=== PATIENT | female | born 1955 | race Caucasian/White ===

== ENCOUNTER 2019-09-25 13:40 | Outpatient (CLI) | payer MEDICARE, BC, SELFPAY ==
--- NOTE | ~2019-09-25 | US_ITS ---
EXAMINATION: US carotid duplex BI DATE: 09/25/2019 15:54 INDICATION: Stroke with subjective vision disturbance TECHNIQUE: Grayscale, color Doppler, and pulsed Doppler images of the cervical carotid arteries were obtained. The degree of vessel stenosis is placed in one of the following categories: normal, <50%, 5 0-69%, >=70% but less than near-occlusion, near-occlusion, or total occlusion. Note that percent sten osis relative to normal distal artery lumen diameter is indirectly measured from velocity measurement s as described by Sebastián, et al. Radiology 2003; [id number]:[id number]. COMPARISON: None. FINDINGS: RIGHT: The right common carotid artery (CCA) peak systolic velocity (PSV) is 51 cm/s. The right internal car otid artery (ICA) PSV is 81 cm/s. The right ICA end-diastolic velocity (EDV) is 13 cm/s. The right IC A/CCA PSV ratio is 1.6. Grayscale and color Doppler images yield an estimate of <50% diameter reducti on from plaque in the ICA. The external carotid artery (ECA) PSV is 67 cm/s. There is antegrade flow in the right vertebral artery. LEFT: The left CCA PSV is 73 cm/s. The left ICA PSV is 73 cm/s. The left ICA EDV is 30 cm/s. The left ICA/C CA PSV ratio is 1.0. Grayscale and color Doppler and straight no appreciable stenosis or plaque in th e ICA. The ECA PSV is 56 cm/s. There is antegrade flow in the left vertebral artery. IMPRESSION: 1. <50% stenosis in the right internal carotid artery. 2. No appreciable plaque or stenosis in the left internal carotid artery. Reviewed, dictated and finalized at location A.
--- NOTE | 2019-09-25 14:30 | ECHO_ITS ---
Patient Info Name: Rachele Garduno Age: 63 years : 1955 Gender: Female Ht: 65 in Wt: 235 lbs BSA: 2.26 m2 HR: 53 bpm BP: 141 / 60 mmHg Technical Quality: Fair Exam Date: 09/25/2019 1:06 PM Exam Location: [facility] [place] Patient Status: Outpatient Admit Date: 09/25/2019 Staff Ordering Physician: Jerilyn Mac Pediatric Geneticist: Abena Corona RDCS Attending Provider: PHYSICIAN NOT ON STAFF, NONSTAFF Exam Type: CA echo dop color flow w con Study Info Indications I63.231 - Cerebral infarction due to unspecified occlusion or stenosis of right carotid arteries Complete two-dimensional, color flow and Doppler transthoracic echocardiogram is performed with contrast to opacify the left ventrical and to improve the deliniation of the left ventrical endocarial boarders. Contrast/Agitated Saline Amount: 10.00 ml Existing IV Access: No IV Access Condition: patent with no signs of infiltration New IV Access: Antecubital Space and Right Site Condition: No extravasation, Site dressing applied and IV removed History/Risk Factors Hypertension: Yes Dyslipidemia: Yes Congenital Heart Disease (CHD): No Peripheral Arterial Disease (PAD): No Myocardial Infarction (NE): Yes Chronic Lung Disease: No Obesity: Yes Renal Disease: No Coronary Artery Disease (CAD) No Congestive Heart Failure (CHF): No Cardiomyopathy/LV Systolic Dysfunction: No Diabetes Mellitus: No COPD: No Tobacco Use: Never Cerebrovascular Disease: No Family History: Diabetes Mellitus, Coronary Artery Disease Deep Vein Thrombosis (DVT): None Dialysis: None Frailty Scale (CSHA): 2: Well Cardiac Arrest: No Prior Interventions Pacemaker: No PCI: No CABG: No Valve Surgery: No ICD: No PV Intervention: None Heart Transplant: No Summary 1. Left ventricular chamber dimension is normal. 2. Left ventricular systolic function is normal, estimated at 60-65%. 3. Definity contrast administered did not improve wall motion interpretation. 4. There is mildly increased left ventricular wall thickness. 5. The left ventricular diastolic function is grade III diastolic dysfunction. 6. E/e' 12 is mildly elevated. 7. Left atrial chamber dimension is mildly enlarged. 8. There is mild tricuspid valve regurgitation. 9. No pulmonary hypertension, estimated pulmonary arterial systolic pressure is 31 mmHg. Left Ventricle E/e' 12 is mildly elevated. Definity contrast administered did not improve wall motion interpretation. Left ventricular chamber dimension is normal. Left ventricular systolic function is normal, estimated at 60-65%. There is mildly increased left ventricular wall thickness. The left ventricular diastolic function is grade III diastolic dysfunction. Right Ventricle Right ventricular chamber dimension is not well visualized. Right ventricular systolic function is normal. Left Atria Left atrial chamber dimension is mildly enlarged. Right Atria Right atrial chamber dimension is not well visualized. Aortic Valve The aortic valve is trileaflet. There is no aortic valve stenosis. There is no aortic valve regurgitation. Pulmonic Valve There is no pulmonic regurgitation. Mitral Valve There is no mitral valve stenosis. There is no mitral valve regurgitation. Tricuspid Valve There is mild tricuspid valve regurgitation. No pulmonary
--- NOTE | 2019-10-27 11:20 | WPDHOLTEREM ---
Holter/Event Monitor Holter/Event Monitor Date of procedure: 09/25/19 Procedure Type: 30 day event monitor Indications: Cerebral infarction Conclusion: 1. 27 days event monitor between 09/25/19-10/24/19. There are 30 available transmissions for analysis. 2. Underlying rhythm is sinus rhythm. HR range 34-120 bpm; average HR 61 bpm. HR ate 34 bpm was at 05:17. 3. There are occasional premature supraventricular complexes with total burden <1%. No supraventricular tachycardia. 4. There are occasional premature ventricular complexes with total burden <1%. No ventricular tachycardia. 5. No significant pauses greater than 3 seconds. 6. No symptoms available for correlation.
== END 2019-09-25 13:41 | disposition home or self-care (01) ==
PROVIDERS: PCP Internal Medicine
DX: I63.9 Cerebral infarction, unspecified (principal)
CPT/HCPCS: 93880; C8929

== ENCOUNTER 2021-03-28 13:23 | Outpatient (CLI) | payer MEDICARE, BC, SELFPAY ==
--- NOTE | ~2021-03-28 | MM_ITS ---
EXAMINATION: MM screening wm BI w andre HISTORY: Screening mammogram TECHNIQUE: Craniocaudal and mediolateral oblique 3-D tomosynthesis images were obtained and synthetic 2-D images were generated. CAD analysis was submitted and interpreted. COMPARISON: No prior mammogram is available for comparison at this institution. BREAST PARENCHYMAL COMPOSITION: There are scattered areas of fibroglandular density. FINDINGS: There is a 5 mm circumscribed opacity in the outer lateral right breast at mid depth. Fan rison with prior mammograms is recommended to determine if this is stable for 2 or more years. No prior mammograms are available or if this is not stable for over 2 years on review of prior mammog cristina, diagnostic right mammogram and targeted right breast ultrasound examination are recommended. Otherwise there is no evidence of suspicious mass, calcification, or architectural distortion to sugg est malignancy in either breast. IMPRESSION: 1. 5 mm circumscribed opacity in the outer mid right breast 2. Comparison with prior mammograms is recommended. If no prior mammograms are available, diagnostic right mammogram and targeted right breast ultrasound examination are recommended. BI-RADS Category 0: Incomplete: Needs additional imaging evaluation. Reviewed, dictated and finalized at location A. IMPRESSION: 1. 5 mm circumscribed opacity in the outer mid right breast 2. Comparison with prior mammograms is recommended. If no prior mammograms are available, diagnostic right mammogram and targeted right breast ultrasound exam ination are recommended. BI-RADS Category 0: Incomplete: Needs additional imaging evaluation.
== END 2021-03-28 13:24 | disposition home or self-care (01) ==
PROVIDERS: PCP Internal Medicine; Visit Provider Internal Medicine
DX: Z12.31 Encounter for screening mammogram for malignant neoplasm of breast (principal)
CPT/HCPCS: 77063; 77067

== ENCOUNTER 2021-11-29 10:40 | Outpatient (CLI) | payer MEDICARE, SELFPAY ==
[2021-11-29 11:28] LABS: Alanine Aminotransferase 20 U/L (14-59); Albumin Level 3.7 g/dL (3.4-5.0); Alkaline Phosphatase 73 U/L (46-116); Anion Gap 8 mmol/L (8-16); Aspartate Amino Transferase 16 U/L (15-37); Bilirubin,Total 0.6 mg/dL (0.00-1.00); Blood Urea Nitrogen 13 mg/dL (7-18); Calcium 9.2 mg/dL (8.5-10.1); Carbon Dioxide 29 mmol/L (21-32); Chloride 101 mmol/L (98-108); Cholesterol 197 mg/dL (0-200); Estimated Glomerular Filt Rate > 60; Glucose 119 mg/dL (70-99); HDL Direct 51 mg/dL (40-60); LDL Cholesterol Calculated 105 mg/dL (<130); Osmolality Calculated 287 mOsm/kg (285-295); Potassium 4.2 mmol/L (3.5-5.1); Sodium 138 mmol/L (136-145); Thyroid Stimulating Hormone 0.64 uIU/mL (0.36-3.74); Total Protein 7.7 g/dL (6.4-8.2); Triglycerides 207 mg/dL (0-150)
== END 2021-11-29 10:41 | disposition home or self-care (01) ==
LOC: CHSLAB 10:46
DX: E78.5 Hyperlipidemia, unspecified (principal); E03.9 Hypothyroidism, unspecified
CPT/HCPCS: 36415; 80053; 80061; 84443

== ENCOUNTER 2022-04-26 13:33 | Outpatient (CLI) | payer MEDICARE, SELFPAY ==
--- NOTE | ~2022-04-26 | MM_ITS ---
EXAMINATION: MM screening wm BI w andre HISTORY: Screening TECHNIQUE: Craniocaudal and mediolateral oblique 3-D tomosynthesis images were obtained and synthetic 2-D images were generated. CAD analysis was submitted and interpreted. COMPARISON: Comparison to multiple prior studies sequentially, with oldest reviewed study dated 08/19. BREAST PARENCHYMAL COMPOSITION: There are scattered areas of fibroglandular density. FINDINGS: There is no evidence of suspicious mass, calcification, or architectural distortion to sugg est malignancy in either breast. There has been no suspicious interval change. IMPRESSION: 1. No mammographic evidence of malignancy. 2. Recommend routine screening mammography in one year. BI-RADS Category 1: Negative Reviewed, dictated and finalized at location A.
== END 2022-04-26 13:34 | disposition home or self-care (01) ==
LOC: CHSIMG 13:34
PROVIDERS: PCP Internal Medicine; Visit Provider Internal Medicine
DX: Z12.31 Encounter for screening mammogram for malignant neoplasm of breast (principal)
CPT/HCPCS: 77063; 77067

== ENCOUNTER 2023-05-22 12:27 | Outpatient (CLI) | payer MEDICARE, BC, SELFPAY ==
--- NOTE | ~2023-05-22 | MM_ITS ---
EXAMINATION: MM screening [facility] BI w andre HISTORY: Screening mammogram TECHNIQUE: Craniocaudal and mediolateral oblique 3-D tomosynthesis images were obtained and synthetic 2-D images were generated. CAD analysis was submitted and interpreted. COMPARISON: 04/26/2022, 03/28/2021, 08/19/2019, 09/27/2017 BREAST PARENCHYMAL COMPOSITION: There are scattered areas of fibroglandular density. FINDINGS: A mass in the middle third outer right breast is stable since 2018, consistent with a benig n finding. No suspicious mass, calcification, or architectural distortion are identified in either br east to suggest malignancy. There has been no suspicious interval change. IMPRESSION: 1. No mammographic evidence of malignancy. 2. Recommend routine screening mammography in one year. BI-RADS Category 2: Benign finding(s). Reviewed, dictated and finalized at location A. LFISH WEIGHER
== END 2023-05-22 12:28 | disposition home or self-care (01) ==
LOC: CHSIMG 12:29
PROVIDERS: PCP Internal Medicine; Visit Provider Internal Medicine
DX: Z12.31 Encounter for screening mammogram for malignant neoplasm of breast (principal)
CPT/HCPCS: 77063; 77067

== ENCOUNTER 2024-04-29 09:56 | Outpatient (RCR) | payer MEDICARE, BC, SELFPAY ==
--- NOTE | 2024-04-29 11:10 | OPREHPOC ---
Outpatient Therapy Plan of Care This is a Multidisciplinary Plan of Care that may contain components documented by all disciplines (PT, OT, and ST.) PT Problem 1 PT Problem #1 Knowledge Deficit PT Goal 1 Goal / Goal Update 1. independent and compliant with HEP Target Visit 6 PT Problem 2 PT Problem #2 Pain PT Goal 1 Goal / Goal Update 1. 2/10 pain or less at worst in the R shoulder 2. reduction of severity of symptoms in the R hand Target Visit 12 PT Problem 3 PT Problem #3 Impaired Strength PT Goal 1 Goal / Goal Update 1. 4+/5 or better overall R shoulder strength 2. 4+/5 or better overall R elbow strength 3. 65lbs or better R training representative strength Target Visit 12 PT Problem 4 PT Problem #4 Impaired Functional Mobil PT Goal 1 Goal / Goal Update 1. quick dash to display 20% or less functional deficits 2. patient to lift 10lbs from waist to shoulder level shelf x5 bouts with good mechanics 3. patient to lift 5lbs overhead to tall shelf x10 reps with good mechanics 4. improve posture of the neck and shoulders to reduce symptoms in the UE's Target Visit 12
--- NOTE | 2024-04-29 11:10 | PTOPEVAL1 ---
Assessment and note entered by JT File, PT Evaluation Information Assessment Status Evaluation ICD-10 Condition Codes (PT) Cervicalgia M54.2,M25.511 Other ICD-10 Condition Codes ( M25.311; M19.011 PT) Onset 04/10/24 Subjective Information patient reports for several years she has had soreness/heaviness in both arms. she reports it feels like at time she had gotten a flu shot/ injection or has blood pressure cuffs on the arms. she reports she recently saw the Ortho who gave her and injection to the R shoulder, and believes she may have a RTC tear. she reports it is 75% better since the injection. she reports she has increased pain in the R shoulder with carrying objects that are similar in weight to a grocery bag. she reports she also has difficulty reaching overhead, and must sit with a pillow under the arm . she reports she has had more intense pain for the past 6 weeks. she reports no change in activity at the time of increased symptoms. she reports she had an xray at the ortho's office, but did not show much arthritis. she reports she follows up with the ortho again only as needed. she reports she does get NTB in the R arm. she reports it goes from the neck down to the R hand and the pinky and ring finger. Reported Pain Level Pain Score 3: Self Report Assessment PT Clinical Summary mrs roy is a 68 yo woman who presents to skilled PT services for evaluation and treatment of R shoulder and neck pain. she presents this date with preserved rom of R shoulder and neck, but poor posture, weakened R UE strength, and deficits in functional use of the R arm. she recently had an injection of the R shoulder that has helped. due to this improvement and her remaining symptoms of the R shoulder, she likely had a RTC tendonitis of the R shoulder. she now is left with little pain, but residual weakness. she is also complicated by R radicular cervical symptoms and R cubital tunnel symptoms. she would benefit from continued skilled PT to address her objective/functional deficits with the R shoulder and neck to return to her prior level functional activity performance/quality of life. Plan of Care Interventions Electrical Stimulation,Hot Pack/Cold Pack,Manual Therapy,Neuro Re-education,Patient/Caregiver Educati,Therapeutic Activities,Therapeutic Exercise PT Services Indicated Yes Treatment Frequency and 3x weekly for 12 visits Duration These treatments will address the objective and functional deficits as defined above. The patient will be advanced safely and appropriately in order for the patient to progress towards his/her prior level of function. Additional exercises will be introduced and as well as a comprehensive home exercise program upon discharge, if needed, ?to ensure carryover of functional gains achieved in the clinic. This treatment plan has been reviewed and agreement upon by the patient.
--- NOTE | 2024-05-21 15:48 | OPREHPOC ---
Outpatient Therapy Plan of Care This is a Multidisciplinary Plan of Care that may contain components documented by all disciplines (PT, OT, and ST.) PT Problem 1 PT Problem #1 Knowledge Deficit PT Goal 1 Goal / Goal Update 1. independent and compliant with HEP Target Visit 6 Progress Met PT Problem 2 PT Problem #2 Pain PT Goal 1 Goal / Goal Update 1. 2/10 pain or less at worst in the R shoulder 2. reduction of severity of symptoms in the R hand Target Visit 12 Progress Met PT Problem 3 PT Problem #3 Impaired Strength PT Goal 1 Goal / Goal Update 1. 4+/5 or better overall R shoulder strength 2. 4+/5 or better overall R elbow strength 3. 65lbs or better R outreach associate strength Target Visit 12 Progress Partially Met PT Problem 4 PT Problem #4 Impaired Functional Mobil PT Goal 1 Goal / Goal Update 1. quick dash to display 20% or less functional deficits 2. patient to lift 10lbs from waist to shoulder level shelf x5 bouts with good mechanics 3. patient to lift 5lbs overhead to tall shelf x10 reps with good mechanics 4. improve posture of the neck and shoulders to reduce symptoms in the UE's Target Visit 12 Progress Met
--- NOTE | 2024-05-21 15:48 | PTOPDC ---
Assessment and note entered by Ratna Daly, PT Evaluation Information Assessment Status Discharge ICD-10 Condition Codes (PT) Cervicalgia M54.2,M25.511 Other ICD-10 Condition Codes ( M25.311, M19.011 PT) Onset 04/10/24 Subjective Information Rachele Garduno reports her right shoulder and neck has improved a lot. She was able to clean house all of Sunday and /2 of Sunday without difficulty. She does get a little sore after sewing for several hours. She is participating in a water aerobics class and walking in the pool 3 times a week as well. She has had a 75% reduction in numbness in the right hand. She feels she is doing well enough that she does not need to come to PT anymore. Reported Pain Level Pain Score 0: Self Report Assessment PT Clinical Summary Rachele Garduno has completed 8 skilled PT visits for right shoulder and neck pain. She is reporting significant improvements in her symptoms and has been able to return to her previous level of function. 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 She will be discharged to an independent [facility]. Plan of Care PT Services Indicated No
== END 2024-05-21 15:53 | disposition home or self-care (01) ==
LOC: CHSPT 09:56
PROVIDERS: Visit Provider Physician Assistant
DX: M25.311 Other instability, right shoulder (principal); M19.011 Primary osteoarthritis, right shoulder; M54.2 Cervicalgia
CPT/HCPCS: 97014; 97110; 97140; 97161; 97750; G0283

== ENCOUNTER 2024-05-23 10:12 | Outpatient (CLI) | payer MEDICARE, BC, SELFPAY ==
--- NOTE | ~2024-05-23 | MM_ITS ---
EXAMINATION: MM screening wm BI w andre HISTORY: Screening mammogram TECHNIQUE: Craniocaudal and mediolateral oblique 3-D tomosynthesis images were obtained and synthetic 2-D images were generated. CAD analysis was submitted and interpreted. COMPARISON: 05/22/2023, 04/26/2022, 03/28/2021, 08/19/2019 BREAST PARENCHYMAL COMPOSITION:Not Dense. There are scattered areas of fibroglandular density. FINDINGS: No suspicious mass, calcification, or architectural distortion are identified in either venkat ast to suggest malignancy. There has been no suspicious interval change. IMPRESSION: No mammographic evidence of malignancy. Recommend routine screening mammography in one year. BI-RADS Category 1: Negative Reviewed, dictated and finalized at location . [employer]
== END 2024-05-23 10:13 | disposition home or self-care (01) ==
LOC: CHSIMG 10:13
PROVIDERS: PCP Internal Medicine; Visit Provider Internal Medicine
DX: Z12.31 Encounter for screening mammogram for malignant neoplasm of breast (principal)
CPT/HCPCS: 77063; 77067